=== PATIENT | male | born 1930 | race Caucasian/White ===

== ENCOUNTER → 2017-10-02 | Outpatient (CLI) | payer OTHER | LOC: M.WC 01:43 | DX: S51.812D Laceration without foreign body of left forearm, subsequent encounter (principal); S51.002A Unspecified open wound of left elbow, initial encounter; G20 Parkinson's disease; X58.XXXD Exposure to other specified factors, subsequent encounter; X58.XXXA Exposure to other specified factors, initial encounter; Y93.89 Activity, other specified; Y92.89 Other specified places as the place of occurrence of the external cause; Y99.8 Other external cause status ==

== ENCOUNTER → 2017-10-09 | Outpatient (CLI) | payer OTHER | LOC: M.WC 02:25 | DX: S41.101A Unspecified open wound of right upper arm, initial encounter (principal); S51.002D Unspecified open wound of left elbow, subsequent encounter; S51.812D Laceration without foreign body of left forearm, subsequent encounter; G20 Parkinson's disease; F32.9 Major depressive disorder, single episode, unspecified; X58.XXXD Exposure to other specified factors, subsequent encounter; X58.XXXA Exposure to other specified factors, initial encounter; Y93.89 Activity, other specified; Y92.89 Other specified places as the place of occurrence of the external cause; Y99.9 Unspecified external cause status ==

== ENCOUNTER → 2017-10-23 | Outpatient (CLI) | payer OTHER | LOC: M.WC 01:39 | DX: S51.812D Laceration without foreign body of left forearm, subsequent encounter (principal); S51.001D Unspecified open wound of right elbow, subsequent encounter; G20 Parkinson's disease; R54 Age-related physical debility; W19.XXXD Unspecified fall, subsequent encounter ==